=== PATIENT | male | born 1990 ===

== ENCOUNTER 2023-04-19 16:16 | Inpatient (IN) | payer BC, SELFPAY ==
[2023-04-19] VITALS (12 sets, daily range): BP systolic 102–145; BP diastolic 54–90; PULSE 75–98; RESP 14–23; TEMP 36.5–37.8; O2SAT 95–100; BMI 25.2
--- NOTE | ~2023-04-19 | CT_ITS ---
EXAMINATION: CT abdomen pelvis w con DATE: 04/19/2023 17:08 INDICATION: RLQ abdominal pain TECHNIQUE: Computed tomography (CT) of the abdomen and pelvis was performed with 100 mL Omnipaque-350 intravenous contrast. Automated exposure control and iterative reconstruction technique were employe d. The dose-length product was 566.18 mGy-cm. COMPARISON: None. FINDINGS: Lower thorax: Unremarkable Liver: Normal. Biliary/Gallbladder: Gallbladder is normal. No bile duct dilation. Pancreas: No mass or duct dilation. Spleen: Normal. Adrenals:No mass. Kidneys: No mass, stone, or hydronephrosis. GI tract: No small or large bowel dilation. Dilated appendicolith-containing appendix with wall edema , mucosal hyperemia, periappendiceal inflammatory change, pericecal fluid, and a cecal wall edema. No evidence of wall breakdown or abscess. Multisegmental areas of colonic submucosal fat as can be seen with chronic IBD, obesity, chemotherapy treatment, and celiac disease. Mesentery/Peritoneum: No ascites, mass, or free air. Retroperitoneum: No mass. Pelvis: Pelvic organs are within normal limits. Soft Tissues: Soft tissues and body wall unremarkable. Bones: No acute osseous finding. IMPRESSION: Severe acute appendicitis. There is pericecal fluid and small volume fluid in the deep pelvis, presum ably reactive given the lack of any findings of wall breakdown. No formed abscess detected. Results reported telephonically to Dr. Moeller by Dr. Dupree at 5:25 PM on 04/17/2023. Reviewed, dictated and finalized at location K. IMPRESSION: Severe acute appendicitis. There is pericecal fluid and small volume fluid in t he deep pelvis, presumably reactive given the lack of any findings of wall calvin kdown. No formed abscess detected. Results reported telephonically to Dr. Moeller by Dr. Dupree at 5:25 PM on 023.
--- NOTE | 2023-04-19 16:35 | ED.GENADULT ---
HPI - General Adult General Chief complaint: Abdominal Pain Stated complaint: Very intense abdominal pain Time Seen by Provider: 04/19/23 16:30 History of Present Illness HPI narrative: 33-year-old male presents with abdominal pain. Per patient, for the past few days he has been having intermittent abdominal pain, mostly in the right lower quadrant, pain continued so he presents to the emergency department for further evaluation. He denied fevers, chills, nausea, vomiting, chest pain, shortness of breath, dysuria, hematuria, diarrhea. He reports last bowel movements . Past Medical History: denied Past Surgical History: denied Medications: denied Allergies: penicillin Related Data Allergies Allergy/AdvReac Type Severity Reaction Status Date / Time Penicillins Allergy Unknown Unknown Verified 04/19/23 16:25 Review of Systems Review of Systems: See HPI Exam Narrative: General: Alert, calm and cooperative, no acute distress, phonating, sitting comfortably during visit HEENT: Pupils equal round and reactive to light, extra ocular movements intact, no conjunctival injection, head atraumatic, neck supple without meningismus Cardiovascular: Regular rate and rhythm, no visible jugular venous distension Respiratory: Lungs clear to auscultation bilaterally, no wheezing/rales/rhonchi Abdominal: RLQ tenderness to palpation, soft, non-distended, no guarding, no rebound/peritoneal signs, no costovertebral tenderness to palpation Back: no midline tenderness to palpation, no step offs Extremities: No edema, palpable peripheral pulses, warm, well perfused, no tenderness to bilateral calves Neurological: Alert, moving all extremities symmetrically, ambulating without deficit Course Consultations Consultation #1: Case discussed with radiologist, appendicitis confirmed. General surgery paged. Date: 04/19/23 Time: 17:29 Consultation #2: Case discussed with general surgeon Dr. Ramires, will take patient to OR. Date: 04/19/23 Time: 17:45 Vital Signs Vital signs: Vital Signs Temperature 97.7 F 04/19/23 16:21 Pulse Rate 76 04/19/23 16:21 Respiratory Rate 18 04/19/23 16:21 Blood Pressure 144/89 H 04/19/23 16:21 Pulse Oximetry 100 04/19/23 16:21 Oxygen Delivery Room Air 04/19/23 16:21 Temperature 97.7 F 04/19/23 16:21 Pulse Rate 98 04/19/23 18:46 Respiratory Rate 23 H 04/19/23 18:46 Blood Pressure 137/85 04/19/23 18:46 Pulse Oximetry 98 04/19/23 18:46 Oxygen Delivery Room Air 04/19/23 16:21 Medical Decision Making MDM Narrative Medical decision making narrative: 33 year old male presented with right lower quadrant abdominal pain. Physical exam notable for right lower quadrant abdominal tednerness to palpation, abdomen soft, vitals stable. Differential diagnosis includes but not limited to: appendicitis vs pyelonephritis vs nephrolithiasis vs PUD. CT abd/pelv notable for severe appendicitis. Bloodwork reviewed, notable for leukocytosis 30k, reamining within normal limits. History and exam suggestive of acute appendicitis. IV antibiotics and analgesia given. General surgery consulted. Given acute nature of presenting disease process and potential for decompensation, the patient would benefit from surgical admission for further optimization and management. Vital Signs Vital Signs: Vital Signs Temperature 97.7 F 04/19/23 16:21 Pulse Rate 76 04/19/23 16:21 Respiratory Rate 18 04/19/23 16:21 Blood Pressure 144/89 H 04/19/23 16:21 Pulse Oximetry 100 04/19/23 16:21 Oxygen Delivery Room Air 04/19/23 16:21 Temperature 97.7 F 04/19/23 16:21 Pulse Rate 98 04/19/23 18:46 Respiratory Rate 23 H 04/19/23 18:46 Blood Pressure 137/85 04/19/23 18:46 Pulse Oximetry 98 04/19/23 18:46 Oxygen Delivery Room Air 04/19/23 16:21 Lab Data 04/19/23 16:27 04/19/23 16:27 Labs: Lab Results 04/19/23 Range/Units 16:27 WB
[2023-04-19 16:37] LABS: Hematocrit 46.5 % (42.0-52.0); Hemoglobin 15.8 g/dL (14.0-18.0); Mean Corpuscular Hemoglobin 30.7 pg (26-34); Mean Corpuscular Volume 90.5 fl (80-100); Mean Platelet Volume 9.5 fl (7.4-10.4); Platelet Count Result 313 k/mm3 (150-375); Red Blood Count 5.14 M/mm3 (4.6-6.20); Red Cell Distribution Width 11.9 % (11.5-14.5); White Blood Count 30.2 K/mm3 (4.5-10.0)
[2023-04-19] MEDS: MORPHINE SULFATE (*CRX) 4 MG/ML INJ IV PUSH ×2 (16:40→17:47)
[2023-04-19 16:45] LABS: Alanine Aminotransferase 21 U/L (6-50); Albumin Level 4.9 g/dL (3.5-5.1); Alkaline Phosphatase 81 U/L (38-126); Anion Gap 13 mmol/L (8-16); Aspartate Amino Transferase 21 U/L (17-59); Bilirubin,Total 1.2 mg/dL (0.2-1.3); Blood Urea Nitrogen 9 mg/dL (9-20); Calcium 9.3 mg/dL (8.4-10.2); Carbon Dioxide 24 mmol/L (22-30); Chloride 98 mmol/L (98-107); Estimated CRCL calculation 107 ml/min; Estimated Glomerular Filt Rate > 60; Glucose 134 mg/dL (65-110); Lipase 23 U/L (23-300); Potassium 3.9 mmol/L (3.4-5.0); Sodium 135 mmol/L (137-145)
[2023-04-19 17:04] LABS: Appearance Urine Cloudy (Clear); Bacteria Urine None Seen /hpf; Bilirubin Urine Negative (Negative); Blood Urine Negative (Negative); Color Urine Dark Yellow (Yellow); Glucose Urine UA Negative (Negative); Ketones Urine 4+ mg/dL (Negative); Leukocyte Esterase Ur Trace LEU/UL (Negative); Mucus Urine Present /lpf; Nitrate Urine Negative (Negative); Protein Urine 1+ mg/dL (Negative); RBC Urine 0-2 /hpf (0-2); Specific Grav Ur 1.033 (1.001-1.035); Squamous Epithelial Cell Urine Few /hpf (Few)
[2023-04-19 17:08] LABS: Add Urine Microscopic? YES
[2023-04-19 17:16] LABS: Band Neutrophils Percent 2 % (0-6); Lymphocytes Absolute Manual 3.62 K/mm3 (1.1-4.5); Monocytes Absolute Manual 1.81 K/mm3 (0.1-0.90); Monocytes Percent Manual 6 % (3-9); Neutrophils Absolute Manual 24.76 K/mm3 (1.3-6.7); Neutrophils Percent Manual 80 % (46-73); Platelet Estimate Adequate (Adequate); Schistocytes None Seen (NORMAL); Total Cells Counted 100
[2023-04-19] MEDS: SODIUM CHLORIDE 0.9% IV 1,000 ML 999 ML IV CONT (17:42)
[2023-04-19] MEDS: metroNIDAZOLE 500 MG/ISO 100ML 500 MG/100 ML BAG 100 MG IVPB (17:54)
--- NOTE | 2023-04-19 18:50 | WPDANESEPPF ---
Anes - Initial Pre Proc Eval Procedure: Operation Date: 04/19/23 18:45 Proposed Procedures p Laparoscopic Appendectomy - Eugene Ramires MD Date/Time: 04/19/23 18:50 Surgeon: Ike Pre Op Diagnosis: Acute appendicitis Pre Op Diagnosis: Very intense abdominal pain Patient Data Age: 33 Gender: M Height: 1.78 m Weight: 80 kg Last Vital Signs Temp 36.5 C 04/19/23 16:21 Pulse 98 04/19/23 18:46 Resp 23 H 04/19/23 18:46 BP 137/85 04/19/23 18:46 Pulse Ox 98 04/19/23 18:46 O2 Del Method Room Air 04/19/23 16:21 Allergies Allergy/AdvReac Type Severity Reaction Status Date / Time Penicillins Allergy Unknown Unknown Verified 04/19/23 16:25 Laboratory Tests 04/19/23 16:27 WBC 30.2 H K/mm3 (4.5-10.0) RBC 5.14 M/mm3 (4.6-6.20) Hgb 15.8 g/dL (14.0-18.0) Hct 46.5 % (42.0-52.0) MCV 90.5 fl (80-100) MCH 30.7 pg (26-34) MCHC 34.0 g/dl (32-36) RDW 11.9 % (11.5-14.5) Plt Count 313 k/mm3 (150-375) MPV 9.5 fl (7.4-10.4) Immature Gran % (Auto) Not Reportable Neut % (Auto) Not Reportable Lymph % (Auto) Not Reportable Colbert % (Auto) Not Reportable Eos % (Auto) Not Reportable Baso % (Auto) Not Reportable Lymph # (Auto) Not Reportable Colbert # (Auto) Not Reportable Eos # (Auto) Not Reportable Baso # (Auto) Not Reportable Abs Immat Gran (auto) Not Reportable Absolute Neuts (auto) Not Reportable Absolute Nucleated RBC Not Reportable Total Counted 100 Neutrophils % (Manual) 80 H % (46-73) Band Neutrophils % 2 % (0-6) Lymphocytes % (Manual) 12.0 L % (18-44) Monocytes % (Manual) 6 % (3-9) Nucleated RBC % Not Reportable Abs Neuts (Manual) 24.76 H K/mm3 (1.3-6.7) Abs Lymphs (Manual) 3.62 K/mm3 (1.1-4.5) Abs Monocytes (Manual) 1.81 H K/mm3 (0.1-0.90) Platelet Estimate Adequate (Adequate) Schistocytes None seen (NORMAL) Sodium 135 L mmol/L (137-145) Potassium 3.9 mmol/L (3.4-5.0) Chloride 98 mmol/L (98-107) Carbon Dioxide 24 mmol/L (22-30) Anion Gap 13 mmol/L (8-16) BUN 9 mg/dL (9-20) Creatinine 0.90 mg/dL (0.7-1.3) Estim Creat Clear Calc 107 ml/min Estimated GFR > 60 (59 - ) Glucose 134 H mg/dL (65-110) Calcium 9.3 mg/dL (8.4-10.2) Total Bilirubin 1.2 mg/dL (0.2-1.3) AST 21 U/L (17-59) ALT 21 U/L (6-50) Alkaline Phosphatase 81 U/L (38-126) Total Protein 8.0 g/dL (6.3-8.2) Albumin 4.9 g/dL (3.5-5.1) Lipase 23 U/L (23-300) Urine Color Dark yellow (Yellow) Urine Appearance Cloudy H (Clear) Urine pH 6.0 (5.0-9.0) Ur Specific Dale 1.033 (1.001-1.035) Urine Protein 1+ H mg/dL (Negative) Urine Glucose (UA) Negative mg/dL (Negative) Urine Ketones 4+ H mg/dL (Negative) Ur Blood (Man) Negative (Negative) Urine Nitrate Negative (Negative) Urine Bilirubin Negative (Negative) Urine Urobilinogen 1.0 mg/dL (<2.0) Leukocyte Esterase Rfl Trace H WAYNE/UL (Negative) Urine RBC 0-2 /hpf (0-2) Urine WBC 6-10 H /hpf Ur Squamous Epith Cells Few /hpf (Few) Urine Bacteria None seen /hpf Urine Casts 6-10 Urine Mucus Present /lpf Patient hx anesthesia problems: none Family hx anesthesia problems: none Results Review: All pre-operative results and documents have been reviewed as part of the pre-operative evaluation. PMFSH Comments Marijuana use, Vaping Anes - Eval Final PreProcedure Day of Procedure 04/19/23 18:50 Patient weight: normal Heart: regular rate and rhythm Lungs: clear to auscultation Airway: Mallampati scale class II Neurological: alert and oriented Last oral intake: >/= 8 hours ASA classification: II Emergent: yes Anesthetic plan: proceed Anesthesia type and monitoring: general ETT an
--- NOTE | 2023-04-19 18:51 | PM.IMHP ---
H&P: HPI History of Present Illness Date/Time: 04/19/23 18:51 Chief Complaint: Acute appendicitis Narrative: Patient is a 33-year-old white male presents to the emergency room with a 2 day history of lower abdominal pain which eventually localized right lower quadrant the abdomen. Episodes nausea or vomiting. In the [place] [address] scan abdomen pelvis was performed showing a very dilated and edematous appendix with an appendicolith noted within the midportion of the appendix. No perforation or free air was seen. No periappendiceal abscess was seen. Patient has not had previous surgery. He otherwise is a fairly healthy individual. Review of Systems Review of Systems: The remainder of the review of systems to include constitutional, HEENT, cardiovascular, respiratory, GI, , integumentary, musculoskeletal, endocrine, immunologic, hematologic, psychiatric, and neurologic are all negative except for which is mentioned above in the HPI. Meds Home Medications and Allergies Allergies Allergy/AdvReac Type Severity Reaction Status Date / Time Penicillins Allergy Unknown Unknown Verified 04/19/23 16:25 Vital Signs Vital Signs - 24 hr 04/19/23 16:21 04/19/23 16:48 04/19/23 18:46 Temperature 36.5 C Pulse Rate 76 79 98 Respiratory Rate 18 20 23 H Blood Pressure 144/89 H 145/90 H 137/85 Pulse Oximetry 100 100 98 Oxygen Delivery Room Air Exam Const: General: in distress (Severe right lower quadrant abdominal pain.) severe HENMT: Face/Nose/Sinus: Normal nares present Mouth: Yes dry mucous membranes Eyes: General: appearance normal, both eyes and all related structures Sclera: sclerae normal Pupils: Equal, round and reactive pupils present EOM: EOMs intact bilaterally Neck: Neck: supple and no JVD Resp: Effort & Inspection: normal respiratory effort Auscultation: clear to auscultation bilaterally Cardio: Rate: regular rate Rhythm: regular rhythm GI: Other: Abdomen is moderately distended. He has severe tenderness the right lower quadrant with involuntary guarding. No mass appreciated no ventral hernias are noted. He does have peritoneal signs. Neuro: Speech: normal speech Sensory Exam: normal sensation Extrem: General: normal to inspection Psych: Mental Status: mental status grossly normal Affect: normal affect H&P: Results Labs Labs: Short CBC 04/19/23 Range/Units 16:27 WBC 30.2 H (4.5-10.0) K/mm3 Hgb 15.8 (14.0-18.0) g/dL Hct 46.5 (42.0-52.0) % Plt Count 313 (150-375) k/mm3 BMP 04/19/23 16:27 Sodium 135 L Potassium 3.9 Chloride 98 Carbon Dioxide 24 BUN 9 Creatinine 0.90 Glucose 134 H Calcium 9.3 Liver Function 04/19/23 Range/Units 16:27 Total Bilirubin 1.2 (0.2-1.3) mg/dL AST 21 (17-59) U/L ALT 21 (6-50) U/L Alkaline Phosphatase 81 (38-126) U/L Albumin 4.9 (3.5-5.1) g/dL Urine 04/19/23 Range/Units 16:27 Urine Color Dark yellow (Yellow) Urine Appearance Cloudy H (Clear) Urine pH 6.0 (5.0-9.0) Ur Specific Robinson 1.033 (1.001-1.035) Urine Protein 1+ H (Negative) mg/dL Urine Glucose (UA) Negative (Negative) mg/dL Imaging CT scan - abdomen: Radiologist's impression: Patient: Ulises Avalos : 1990 MR#: [id number] Age/Sex: 33 / M Acct:[id number] Loc: [facility]? ? ADM Date: 04/19/23Attending Dr: Ordering Physician: Avel Moeller MD Date of Service: 04/19/23 Procedure(s): CT abdomen pelvis w con Accession Number(s): [id number] cc: Avel Moeller MD~ EXAMINATION: CT abdomen pelvis w con DATE: 04/19/2023 17:08 INDICATION: RLQ abdominal pain TECHNIQUE: Computed tomography (CT) of the abdomen and pelvis was performed with 100 mL Omnipaque-350 intravenous contrast. Automated exposure control and iterative reconstruction technique were employed. The dose-length product was 566.18 mGy-c
--- NOTE | 2023-04-19 19:00 | P.PNAN_ITS ---
Anes - Eval Final PreProcedure Day of Procedure 04/19/23 19:00 Patient weight: normal Heart: regular rate and rhythm Lungs: decreased breath sounds Airway: Mallampati scale class II Neurological: alert and oriented Last oral intake: >/= 8 hours ASA classification: II Emergent: yes Anesthetic plan: proceed Anesthesia type and monitoring: general ETT and standard monitoring Results Review: All pre-operative results and documents have been reviewed as part of the pre- operative evaluation. Informed Consent: The patient's anesthetic plan and its attendant risks and benefits were discussed with the patient/family/POA. Questions were solicited and answers provided to the satisfaction of the patient/family/POA.
[2023-04-19] MEDS: ACETAMINOPHEN 650 MG SUPPOSITORY RECTAL (19:23)
[2023-04-19] MEDS: BUPivacaine HCL 0.5% 10 ML AMP 20 ML INFILTRATE (19:41)
[2023-04-19] MEDS: LACTATED RINGERS 1,000 ML 30 ML IV CONT ×2 (20:20)
--- NOTE | 2023-04-19 20:29 | W.PM.PROC2 ---
Procedure Note - Detailed Date of Procedure 04/19/23 Pre-op Diagnosis Acute appendicitis. Post-op Diagnosis Other (Perforated appendicitis.) Procedure Performed Laparoscopic appendectomy Surgeon Eugene Ramires MD Mat Man SUSANNE Ho Anesthesia General Indications Patient is a 33-year-old white male presents to the emergency with a 2 day history of right lower quadrant abdominal pain. [place] [address] scan abdomen pelvis showed a dilated and inflamed appendix with a appendicoliths within the appendix. There was periappendiceal inflammation but no abscess or free air. Findings Upon entering the abdomen there was peritonitis in the right lower quadrant was some purulent fluid extending into the pelvis. Inflammatory adhesions of the terminal ileum to the cecum and the appendix. Upon mobilization of the terminal ileum it was clear that there was a perforation of the appendix with a small amount of fecal contamination. Description of Procedure After informed consent was obtained patient brought to the operating room placed supine position and general endotracheal anesthesia was administered. A Cormier catheter was placed decompress the bladder and an orogastric tube was placed decompress the stomach. The end was then prepped and draped usual sterile fashion. A time-out was then performed correctly identifying the patient as well as procedure to be performed. Patient already got scheduled IV antibiotics. I then entered the abdomen left upper quadrant utilizing a 5mm Optiview port. Once inside the abdomen insufflated to adequate pneumoperitoneum of 15mmHg of CO2. I then placed a 5mm suprapubic trocar port as well as a 5minute right lower quadrant trocar port and then a 12mm periumbilical trocar port all under direct visualization. Working through these ports I was able to mobilize the terminal ileum off of the cecum. There were inflammatory adhesions in this area. I then found the appendix which in the midportion had a small area perforation and a small amount of stool which had leaked out of the appendix. I was able to hold the appendix up with a laparoscopic grasper did make a defect of the mesoappendix just at the base. I then used a Endo-ADRIEN stapler to divide the appendix flush with the cecum. The mesoappendix was then divided with a vascular load to the 45mm Endo-ADRIEN stapler. The appendix was then placed into an Endo-Catch bag and brought out through the periumbilical trocar port site. It was passed off table sent to pathology for examination. I then irrigated out the right lower quadrant the abdomen and the pelvis with about 2.5L of sterile saline solution. At the end of the irrigation there was no more purulence or fecal material noted in the fluid. I then placed a 15 Angolan round Sherman drain into the right lower quadrant of the abdomen and brought out through the suprapubic trocar port site. It was secured to the skin of the 3-0 nylon suture. This point I then removed all the trocar ports under visualization all port sites appeared hemostatic. I then allowed the abdomen decompressed. I then closed the periumbilical trocar port fascial defect utilizing a 0 Vicryl suture placed in a figure-eight fashion. All the port sites was then closed utilizing a running subcuticular 4-0 Monocryl suture. The incisions were then cleaned the skin glue was used for final dressing. The patient tolerated the procedure well no complications. All sponges, needles, and instrument counts were correct at the end procedure. EBL was _ 20 __cc. The patient was awakened and taken to recovery in stable and satisfactory condition. At the end the procedure the Cormier catheter was removed. Implants None Estimated Blood Loss 20 Drains Yes (15 Angolan round Sherman drain right lower quadrant) Packing No Pathology Yes (Appendix to pathology) Complications No immediate complications Condition Stable Disposition PACU [facility] Billing Marzena
[2023-04-19] MEDS: LACTATED RINGERS 1,000 ML 125 ML IV CONT (21:55)
--- NOTE | 2023-04-19 22:27 | ADMGEN ---
This patient, Ulises Avalos, was admitted to [facility] Surg Room 303-01. Patient/family oriented to hospital policies and general routines including ID bracelet, bed and alarms, visiting hours, pain management, procedures, bathroom and other care routines, personal items, smoking policy, room service/diet, and visiting hours. Information on how to activate the Rapid Response Team has been discussed. Patient/Family are encouraged to report perceived risks to care and to ask questions if they do not understand what they are told or what they should do.
[2023-04-19] MEDS: oxyCODONE HCL (*CRX) 5 MG TAB IR PO (23:41)
[2023-04-19] MEDS: metroNIDAZOLE 250 MG TABLET 500 MG PO (23:42)
[2023-04-20 04:00] VITALS: BP 126/72; PULSE 78; RESP 16; TEMP 36; O2SAT 99
[2023-04-20] MEDS: metroNIDAZOLE 250 MG TABLET 500 MG PO ×3 (06:13→17:03)
[2023-04-20] MEDS: LACTATED RINGERS 1,000 ML 125 ML IV CONT ×2 (06:14→08:12)
[2023-04-20 08:31] LABS: Basophils Percent Auto 0.1 % (0.2-1.2); Hematocrit 41.4 % (42.0-52.0); Hemoglobin 13.8 g/dL (14.0-18.0); Immature Granulocyte Absolute 0.12 K/mm3 (0.00-0.031); Immature Granulocyte Percent A 0.6 % (0-0.5); Lymphocytes Absolute Auto 0.75 K/mm3 (0.9-3.2); Lymphocytes Percent Auto 3.7 % (18.3-44.2); Mean Corpuscular HGB Conc 33.3 g/dl (32-36); Mean Corpuscular Hemoglobin 30.3 pg (26-34); Monocytes Absolute Auto 1.3 K/mm3 (0.1-0.6); Monocytes Percent Auto 6.3 % (2.6-8.5); Neutrophils Percent Auto 89.3 % (45.5-73.1); Platelet Count Result 224 k/mm3 (150-375); Red Blood Count 4.55 M/mm3 (4.6-6.20); Red Cell Distribution Width 11.9 % (11.5-14.5); White Blood Count 20.1 K/mm3 (4.5-10.0)
[2023-04-20] MEDS: oxyCODONE HCL (*CRX) 5 MG TAB IR PO ×3 (08:54→19:49)
--- NOTE | 2023-04-20 09:09 | PM.PNGS ---
Progress Note: A&P Assessment and Plan (1) Acute appendicitis: Qualifiers: Acute appendicitis type: unspecified acute appendicitis type Qualified Code(s): K35.80 - Unspecified acute appendicitis Code(s): K35.80 - Unspecified acute appendicitis Status: Acute Assessment and Plan: Due to perforation and spillage was small amount of fecal material and severe peritonitis in the region I think he would benefit from another 24hours of IV antibiotics. White blood count is still pending but it was 30,000 before surgery. Clinically he is much improved. We will go ahead and Hep-Lock is IV fluids. Ambulate as tolerated. Likely go home on oral antibiotics for another 7 to 10 days. Hopefully can discharge home tomorrow. Subjective Subjective Date/Time Seen: 04/20/23 09:09 Interval history: Patient is postop day 1 after laparoscopic appendectomy for perforated appendicitis. He is doing well today. His pain is much better. He remained afebrile overnight. He tolerated regular food this morning. White blood cell count is still pending this morning. Exam Const: General: comfortable and no acute distress GI: Other: Abdomen is soft and nondistended. Drain is in place with slightly blood tinged nonpurulent serous drainage. Amount output is low. Remaining port sites are healing well without any drainage or redness. Some mild tenderness around the port sites but no significant tenderness in the right lower quadrant or guarding. Objective Data Vital Signs Vital Signs: Vital Signs - 24 hr 04/19/23 16:21 04/19/23 16:48 04/19/23 18:46 Temperature 36.5 C Pulse Rate 76 79 98 Respiratory Rate 18 20 23 H Blood Pressure 144/89 H 145/90 H 137/85 Pulse Oximetry 100 100 98 Oxygen Delivery Room Air Oxygen Flow Rate 04/19/23 20:20 04/19/23 20:35 04/19/23 20:50 Temperature 37.8 C H Pulse Rate 98 93 88 Respiratory Rate 17 16 15 Blood Pressure 102/54 L 111/63 132/75 Pulse Oximetry 99 100 95 Oxygen Delivery Simple Face Mask Simple Face Mask Room Air Oxygen Flow Rate 8 8 04/19/23 21:05 04/19/23 21:20 04/19/23 21:45 Temperature 37.8 C H 36.5 C Pulse Rate 86 89 79 Respiratory Rate 16 18 14 Blood Pressure 123/82 129/75 139/77 Pulse Oximetry 95 95 98 Oxygen Delivery Room Air Room Air Oxygen Flow Rate 04/19/23 22:00 04/19/23 22:30 04/19/23 23:30 Temperature 36.8 C 36.8 C 36.6 C Pulse Rate 78 84 75 Respiratory Rate 16 14 14 Blood Pressure 145/82 H 138/83 132/82 Pulse Oximetry 99 98 99 Oxygen Delivery Oxygen Flow Rate 04/20/23 04:00 04/20/23 08:12 Temperature 36.0 C L Pulse Rate 78 Respiratory Rate 16 Blood Pressure 126/72 Pulse Oximetry 99 Oxygen Delivery Room Air Oxygen Flow Rate Intake/Output Intake/Output: Intake & Output 04/17/23 04/18/23 04/19/23 04/20/23 23:59 23:59 23:59 23:59 Intake Total 1400 2487 Output Total 100 160 Balance 1300 2327 Meds/Results Medications: Active Medications Generic Name Dose Route Start Last Admin Trade Name Freq PRN Reason Stop Dose Admin Acetaminophen 1,000 mg 04/19/23 20:26 Acetaminophen 500 Mg Tablet PO Q6H PRN Pain Rated 1-3 Hydromorphone HCl 1 mg 04/19/23 20:26 Hydromorphone Hcl Inj (*Crx) 1 Mg/Ml Syr IV PUSH Q4H PRN Pain Rated 7-10 Lactated Ringer's 1,000 mls @ 125 mls/hr 04/19/23 20:26 04/20/23 08:12 Lr - Lactated Ringers Iv IV CONT 125 mls/hr .Q8H NARESH Administration Ceftriaxone Sodium 1 gm in 50 mls @ 100 mls/hr 04/20/23 09:00 04/20/23 08:04 Rocephin 1 Gm/Ns 50 Ml IVPB 100 mls/hr DAILY NARESH Administration Metronidazole 500 mg 04/20/23 00:00 04/20/23 06:13 Metronidazole 250 Mg Tablet PO 500 mg Q6HR NARESH Administration Ondansetron HCl 4 mg 04/19/23 20:26 Ondansetron Inj 4 Mg/2 Ml Vial IV PUSH Q6H PRN nausea Oxycodone HCl 5 mg 04/19/23 21:33 04/20/23 08:54 Oxycodone Hcl (*Crx) 5 Mg Tab Ir PO
[2023-04-20 09:24] VITALS: O2SAT 97
--- NOTE | 2023-04-20 11:50 | PC.NURSE ---
Addendum entered by Jazmine Gambino RN 04/20/23 17:44: Pt resting in room. Pt had 5mL output from LANRE drain. Trochar sites are clean, dry, and intact. Pt reports having a decreased appetite at this time. Will continue to monitor pt. Original Note: Pt continues to have pain 4/10 that is controlled with roxicodone. Pt reports that he will need a work release when discharged. Pt has family at bedside. Pt is A&O4 and participates and contributes in plan of care. Will continue to monitor pt.
[2023-04-20 14:00] VITALS: BP 121/67; PULSE 82; RESP 16; TEMP 37.7; O2SAT 98
[2023-04-20 22:00] VITALS: BP 129/84; PULSE 87; RESP 16; TEMP 36.9; O2SAT 99
[2023-04-21] MEDS: metroNIDAZOLE 250 MG TABLET 500 MG PO ×2 (00:32→05:12)
[2023-04-21] MEDS: oxyCODONE HCL (*CRX) 5 MG TAB IR PO ×2 (04:09→16:36)
[2023-04-21 06:00] VITALS: BP 135/79; PULSE 87; RESP 18; TEMP 36.4; O2SAT 98
[2023-04-21 06:44] LABS: Basophils Percent Auto 0.1 % (0.2-1.2); Hematocrit 43.7 % (42.0-52.0); Hemoglobin 14.5 g/dL (14.0-18.0); Immature Granulocyte Absolute 0.13 K/mm3 (0.00-0.031); Immature Granulocyte Percent A 0.6 % (0-0.5); Lymphocytes Absolute Auto 0.93 K/mm3 (0.9-3.2); Lymphocytes Percent Auto 4.6 % (18.3-44.2); Mean Corpuscular HGB Conc 33.2 g/dl (32-36); Mean Corpuscular Hemoglobin 30.2 pg (26-34); Mean Platelet Volume 10.4 fl (7.4-10.4); Monocytes Absolute Auto 1.6 K/mm3 (0.1-0.6); Monocytes Percent Auto 7.7 % (2.6-8.5); Neutrophils Absolute Auto 17.6 K/mm3 (1.3-6.7); Platelet Count Result 230 k/mm3 (150-375); Red Cell Distribution Width 11.9 % (11.5-14.5); White Blood Count 20.2 K/mm3 (4.5-10.0)
--- NOTE | 2023-04-21 07:54 | PM.PNGS ---
Progress Note: A&P Assessment and Plan (1) Acute appendicitis: Qualifiers: Acute appendicitis type: unspecified acute appendicitis type Qualified Code(s): K35.80 - Unspecified acute appendicitis Code(s): K35.80 - Unspecified acute appendicitis Status: Acute Assessment and Plan: Postop day 2 after laparoscopic appendectomy for perforated appendicitis. He may have more of an ileus now has a of emesis this morning has not had a bowel movements. This is likely be due to his peritonitis from the perforated appendicitis. Insert IV antibiotics as white blood cell count was decreasing yesterday but today is pending. He was tolerating diet yesterday but this morning is drinking liquids but now has chosen not to be seen solid. He would like to have a bowel movement I offered him a suppository this morning he needs to get up and ambulate in the hallways and walk to the bathroom. Continue supportive management today and IV antibiotics. Leave the drain in for now. Subjective Subjective Date/Time Seen: 04/21/23 07:54 Post Op day: 2 Interval history: Patient is now postop day 2 after laparoscopic appendectomy for perforated appendicitis. He has been afebrile but seems to be swelling this morning. He did have an episode of emesis this morning. A bowel movement is he was tolerating regular diet yesterday but is not willing to eat much today because he just had some nausea and emesis. White blood cell count was 20,000 yesterday down from 30,000 thousand prior to surgery. Today's white blood cell count is pending. Exam GI: Other: Abdomen is soft minimally distended. Port site incisions are healing well. LANRE drain is low volume serous fluid. No feculent fluid or pus. Objective Data Vital Signs Vital Signs: Vital Signs - 24 hr 04/20/23 08:12 04/20/23 09:24 04/20/23 14:00 Temperature 37.7 C H Pulse Rate 82 Respiratory Rate 16 Blood Pressure 121/67 Pulse Oximetry 97 98 Oxygen Delivery Room Air Room Air 04/20/23 22:00 04/20/23 20:00 04/21/23 06:00 Temperature 36.9 C 36.4 C L Pulse Rate 87 87 Respiratory Rate 16 18 Blood Pressure 129/84 135/79 Pulse Oximetry 99 98 Oxygen Delivery Room Air Intake/Output Intake/Output: Intake & Output 0704/19/23 04/20/23 04/21/23 23:59 23:59 23:59 23:59 Intake Total 1400 3277 550 Output Total 100 665 765 Balance 1300 2612 -572 Meds/Results Medications: Active Medications Generic Name Dose Route Start Last Admin Trade Name Freq PRN Reason Stop Dose Admin Acetaminophen 1,000 mg 04/19/23 20:26 Acetaminophen 500 Mg Tablet PO Q6H PRN Pain Rated 1-3 Hydromorphone HCl 1 mg 04/19/23 20:26 Hydromorphone Hcl Inj (*Crx) 1 Mg/Ml Syr IV PUSH Q4H PRN Pain Rated 7-10 Ceftriaxone Sodium 1 gm in 50 mls @ 100 mls/hr 04/20/23 09:00 04/20/23 08:34 Rocephin 1 Gm/Ns 50 Ml IVPB Infused DAILY NARESH Infusion Metronidazole 500 mg 04/20/23 00:00 04/21/23 05:12 Metronidazole 250 Mg Tablet PO 500 mg Q6HR NARESH Administration Ondansetron HCl 4 mg 04/19/23 20:26 Ondansetron Inj 4 Mg/2 Ml Vial IV PUSH Q6H PRN nausea Oxycodone HCl 5 mg 04/19/23 21:33 04/21/23 04:09 Oxycodone Hcl (*Crx) 5 Mg Tab Ir PO 5 mg Q4H PRN Administration Pain Rated 4-6 Radiology Results: ITS Impressions Abdomen/Pelvis CT 04/19/23 17:21 IMPRESSION: Severe acute appendicitis. There is pericecal fluid and small volume fluid in the deep pelvis, presumably reactive given the lack of any findings of wall breakdown. No formed abscess detected. Results reported telephonically to Dr. Moeller by Dr. Dupree at 5:25 PM on 04/17/2023. Labs Labs: Laboratory Results - last 24 hr 04/20/23 08:03 WBC 20.1 H RBC 4.55 L Hgb 13.8 L Hct 41.4 L MCV 91.0 MCH 30.3 MCHC 33.3 RDW 11.9 Plt Count 224 MPV 10.0 Immature Gran % (Auto) 0.6 H Neut % (Auto) 89.3 H Ly
--- NOTE | 2023-04-21 11:16 | PCCCNOTE ---
On 04/21/23, the student, [Renetta Luu ], provided care and completed [facility] documentation on this patient. I have reviewed the student's documentation and agree with the findings.
--- NOTE | 2023-04-21 12:39 | PC.NURSE ---
Pt up ambulating per room. Encouraged to walk in hallway. Verbalized understanding.
[2023-04-21] MEDS: ONDANSETRON INJ 4 MG/2 ML VIAL IV PUSH ×2 (13:14→20:04)
[2023-04-21] MEDS: BISACODYL 10 MG SUPPOSITORY RECTAL (13:14)
[2023-04-21 14:00] VITALS: BP 133/76; PULSE 84; RESP 18; TEMP 36.7; O2SAT 100
[2023-04-21] MEDS: MEROPENEM 1 GM in SODIUM CHLORIDE 0.9% IV 100 ML 200 ML IVPB ×2 (16:34→20:01)
[2023-04-21 22:00] VITALS: BP 151/83; PULSE 79; RESP 16; TEMP 36.2; O2SAT 98
--- NOTE | 2023-04-21 22:55 | PC.NURSE ---
Pt walked the unit twice at 2100 with walker while pt walking along side of him. Pt denies lightheadedness/dizziness. Pt states he felt a little relief with nausea when he walks. Pt denies numbness/tingling. Pt denies increase pain at incisional sight. Continued monitoring. Pt was administered Zofran once at the beginning of shift due to c/o of nausea; no emesis present. Continued monitoring. Pt will continued to be educated on plan of care and will continued to be encouraged to walk.
[2023-04-22] MEDS: HYDROmorphone HCL INJ (*CRX) 1 MG/ML SYR IV PUSH (00:03)
[2023-04-22] MEDS: MEROPENEM 1 GM in SODIUM CHLORIDE 0.9% IV 100 ML 200 ML IVPB ×3 (05:04→22:44)
[2023-04-22] MEDS: oxyCODONE HCL (*CRX) 5 MG TAB IR PO (05:05)
[2023-04-22 05:56] VITALS: BP 110/72; PULSE 96; RESP 16; TEMP 36; O2SAT 100
--- NOTE | 2023-04-22 05:59 | PC.NURSE ---
Pt walked the unit at 0530 twice. Pt walked once around unit with a walker and walked the second time without the walker. Pt walk is steady. Pt states I feel much better. Pt denies N/V. Pt denies lightheadedness/dizziness. Continued monitoring and continued encouragement and plan of care education.
[2023-04-22 06:02] LABS: Basophils Percent Auto 0.2 % (0.2-1.2); Eosinophils Percent Auto 0.2 % (0-4.4); Hematocrit 44.1 % (42.0-52.0); Hemoglobin 14.5 g/dL (14.0-18.0); Immature Granulocyte Absolute 0.07 K/mm3 (0.00-0.031); Immature Granulocyte Percent A 0.4 % (0-0.5); Lymphocytes Absolute Auto 2.32 K/mm3 (0.9-3.2); Lymphocytes Percent Auto 13.5 % (18.3-44.2); Mean Corpuscular HGB Conc 32.9 g/dl (32-36); Mean Corpuscular Hemoglobin 30.4 pg (26-34); Mean Corpuscular Volume 92.5 fl (80-100); Mean Platelet Volume 10.3 fl (7.4-10.4); Monocytes Absolute Auto 1.5 K/mm3 (0.1-0.6); Monocytes Percent Auto 8.5 % (2.6-8.5); Neutrophils Absolute Auto 13.2 K/mm3 (1.3-6.7); Neutrophils Percent Auto 77.2 % (45.5-73.1); Platelet Count Result 282 k/mm3 (150-375); Red Blood Count 4.77 M/mm3 (4.6-6.20); Red Cell Distribution Width 12.1 % (11.5-14.5); White Blood Count 17.2 K/mm3 (4.5-10.0)
[2023-04-22 06:08] LABS: Anion Gap 8 mmol/L (8-16); Blood Urea Nitrogen 13 mg/dL (9-20); Calcium 8.9 mg/dL (8.4-10.2); Carbon Dioxide 33 mmol/L (22-30); Chloride 96 mmol/L (98-107); Estimated CRCL calculation 119 ml/min; Estimated Glomerular Filt Rate > 60; Glucose 104 mg/dL (65-110); Potassium 3.8 mmol/L (3.4-5.0); Sodium 137 mmol/L (137-145)
--- NOTE | 2023-04-22 11:58 | PM.PNGS ---
Progress Note: A&P Assessment and Plan (1) Acute appendicitis: Qualifiers: Acute appendicitis type: unspecified acute appendicitis type Qualified Code(s): K35.80 - Unspecified acute appendicitis Code(s): K35.80 - Unspecified acute appendicitis Status: Acute Assessment and Plan: Peritonitis is improving and postoperative ileus is resolving. Continue to advance to regular diet as tolerated. Continue meropenem for IV antibiotics today as his white blood count has continued to decrease. Likely discharge home tomorrow on oral antibiotics. Subjective Subjective Date/Time Seen: 04/22/23 11:58 Interval history: Patient feels much better today. He had a bowel movement yesterday has been able to walk around the hallways. Slept better last night. White blood cell count which was stable at 20,000 thousand yesterday is now dropped to 17,000. he was switched to meropenem for IV antibiotics yesterday. LANRE drain output is still serous and non feculent. No fever. Exam GI: Other: Soft and nondistended. Port site incisions healing well. Lower quadrant LANRE drain output is serous. Objective Data Vital Signs Vital Signs: Vital Signs - 24 hr 04/21/23 14:00 04/21/23 20:00 04/21/23 22:00 Temperature 36.7 C 36.2 C L Pulse Rate 84 79 Respiratory Rate 18 16 Blood Pressure 133/76 151/83 H Pulse Oximetry 100 98 Oxygen Delivery Room Air 04/22/23 05:56 04/22/23 08:00 Temperature 36.0 C L Pulse Rate 96 Respiratory Rate 16 Blood Pressure 110/72 Pulse Oximetry 100 Oxygen Delivery Room Air Intake/Output Intake/Output: Intake & Output 04/19/23 04/20/23 04/21/23 04/22/23 23:59 23:59 23:59 23:59 Intake Total 1400 3277 1150 970 Output Total 100 665 795 195 Balance 1300 2612 108 775 Meds/Results Medications: Active Medications Generic Name Dose Route Start Last Admin Trade Name Freq PRN Reason Stop Dose Admin Acetaminophen 1,000 mg 04/19/23 20:26 Acetaminophen 500 Mg Tablet PO Q6H PRN Pain Rated 1-3 Bisacodyl 10 mg 04/21/23 07:59 04/21/23 13:14 Bisacodyl 10 Mg Suppository RECTAL 10 mg QAM PRN Administration Constipation Diphenhydramine HCl 50 mg 04/21/23 13:57 Diphenhydramine Hcl Inj 50 Mg/Ml Vial IV PUSH ONCE PRN itching Hydromorphone HCl 1 mg 04/19/23 20:26 04/22/23 00:03 Hydromorphone Hcl Inj (*Crx) 1 Mg/Ml Syr IV PUSH 1 mg Q4H PRN Administration Pain Rated 7-10 Meropenem 1 gm/ Sodium 100 mls @ 200 mls/hr 04/21/23 14:00 04/22/23 05:34 Chloride IVPB Infused Q8H NARESH Infusion Ondansetron HCl 4 mg 04/19/23 20:26 04/21/23 20:04 Ondansetron Inj 4 Mg/2 Ml Vial IV PUSH 4 mg Q6H PRN Administration nausea Oxycodone HCl 5 mg 04/19/23 21:33 04/22/23 05:05 Oxycodone Hcl (*Crx) 5 Mg Tab Ir PO 5 mg Q4H PRN Administration Pain Rated 4-6 Radiology Results: ITS Impressions Abdomen/Pelvis CT 04/19/23 17:21 IMPRESSION: Severe acute appendicitis. There is pericecal fluid and small volume fluid in the deep pelvis, presumably reactive given the lack of any findings of wall breakdown. No formed abscess detected. Results reported telephonically to Dr. Moeller by Dr. Dupree at 5:25 PM on 04/17/2023. Labs Labs: Laboratory Results - last 24 hr 04/22/23 05:16 WBC 17.2 H RBC 4.77 Hgb 14.5 Hct 44.1 MCV 92.5 MCH 30.4 MCHC 32.9 RDW 12.1 Plt Count 282 MPV 10.3 Immature Gran % (Auto) 0.4 Neut % (Auto) 77.2 H Lymph % (Auto) 13.5 L [place] % (Auto) 8.5 Eos % (Auto) 0.2 Baso % (Auto) 0.2 Lymph # (Auto) 2.32 [place] # (Auto) 1.5 H Eos # (Auto) 0.0 Baso # (Auto) 0.0 Abs Immat Gran (auto) 0.07 H Absolute Neuts (auto) 13.2 H Absolute Nucleated RBC 0.0 Nucleated RBC % 0.0 Sodium 137 Potassium 3.8 Chloride 96 L Carbon Dioxide 33 H Anion Gap 8 BUN 13 Creatinine 0.80 Estim Creat Clear Calc 119 Estimated GFR > 60 Gluc
[2023-04-22] MEDS: ACETAMINOPHEN 500 MG TABLET 1000 MG PO ×2 (12:27→20:59)
[2023-04-22 14:00] VITALS: BP 128/82; PULSE 79; RESP 12; TEMP 36.4; O2SAT 98
[2023-04-22 22:00] VITALS: BP 138/88; PULSE 91; RESP 16; TEMP 37.3; O2SAT 100
[2023-04-23] MEDS: ACETAMINOPHEN 500 MG TABLET 1000 MG PO (04:01)
[2023-04-23] MEDS: MEROPENEM 1 GM in SODIUM CHLORIDE 0.9% IV 100 ML 200 ML IVPB (05:56)
[2023-04-23 06:00] VITALS: BP 137/88; PULSE 80; RESP 16; TEMP 36.8; O2SAT 97
[2023-04-23 06:06] LABS: Basophils Absolute Auto 0.1 K/mm3 (0.0-0.1); Basophils Percent Auto 0.4 % (0.2-1.2); Eosinophils Absolute Auto 0.2 K/mm3 (0-0.3); Eosinophils Percent Auto 1.2 % (0-4.4); Hematocrit 43.5 % (42.0-52.0); Hemoglobin 14.4 g/dL (14.0-18.0); Immature Granulocyte Absolute 0.05 K/mm3 (0.00-0.031); Immature Granulocyte Percent A 0.4 % (0-0.5); Lymphocytes Absolute Auto 2.22 K/mm3 (0.9-3.2); Lymphocytes Percent Auto 18.2 % (18.3-44.2); Mean Corpuscular HGB Conc 33.1 g/dl (32-36); Mean Corpuscular Hemoglobin 30.3 pg (26-34); Mean Corpuscular Volume 91.6 fl (80-100); Mean Platelet Volume 10.2 fl (7.4-10.4); Monocytes Absolute Auto 1.2 K/mm3 (0.1-0.6); Monocytes Percent Auto 9.4 % (2.6-8.5); Neutrophils Absolute Auto 8.6 K/mm3 (1.3-6.7); Neutrophils Percent Auto 70.4 % (45.5-73.1); Platelet Count Result 300 k/mm3 (150-375); Red Blood Count 4.75 M/mm3 (4.6-6.20); Red Cell Distribution Width 11.9 % (11.5-14.5); White Blood Count 12.2 K/mm3 (4.5-10.0)
--- NOTE | 2023-04-23 10:39 | PM.DS ---
DS: Admitting Diagnosis Discharge Date April 23, 2023 Admitting Diagnosis Acute appendicitis DS: Discharge Diagnosis Discharge Diagnosis Plan Perforated acute appendicitis DS: Summary Hospital Course Reason for hospitalization: Acute appendicitis Hospital Course: Patient presents to the emergency room here at [facility] with a 2 day history of worsening lower abdominal pain which localized to right lower quadrant abdomen. In the emergency room he was noted to have severe tenderness right lower quadrant with guarding and localized rebound tenderness. [place] [id number] [place] scan abdomen pelvis showed a very dilated appendix with possible perforation and a mid appendiceal appendicoliths. He was admitted to the hospital and started on IV antibiotics. He was given IV fluids. He was then taken to the operating room that evening for a successful laparoscopic appendectomy. There was severe peritonitis in the right lower quadrant the abdomen due to the severe inflammation and there was some limited spillage of fecal material which was quickly aspirated from the abdomen. Postoperatively his course and recovery was uneventful. He was then transferred to surgical floor. Once surgical floor his white blood cell count initially decreased to about 20,000. He remained afebrile but was cavity quite a bit of pain still due to the peritonitis. A left right lower quadrant drain was in place and there was no for feculent drainage but just bloody serosanguineous fluid to begin after surgery. The next days white blood count is still 20,000 and patient had a postoperative ileus and did not have any bowel movements. He was told to get up and walk around in the hallways and is IV antibiotics was switched to meropenem for broader coverage of possible anaerobic organisms. The next day he then started to do well after having a bowel movement. He was still getting up walking the hallways. He is tolerating oral pain medications. His white blood cell count dropped down to 12,000 with a new antibiotic and he was improving. He was doing well and be discharged home postop day 4. Patient was discharged home on Cipro for oral antibiotics for another 7 days. Status at Discharge Functional status at discharge: independent ambulation Overall status at discharge: patient is progressing back to baseline Time Spent with Patient Time attestation: Total time spent providing and/or coordinating discharge services: Time spent: Less than 30 minutes Exam Const: General: cooperative, healthy appearing, comfortable and no acute distress Chest: Chest palpation & inspection: normal inspection of the chest and normal palpation of entire chest wall Resp: Effort & Inspection: normal respiratory effort and able to speak in complete sentences Cardio: Rate: regular rate Rhythm: regular rhythm GI: Other: Abdomen nondistended. LANRE drain output is minimal and serous. Remaining port site incisions are healing well with skin glue in place without redness or drainage. No tenderness right lower quadrant the abdomen. Neuro: General: patient oriented x3 Cranial nerves: Yes CN's II-XII intact bilaterally Cognition (Neuro): normal cognition Speech: normal speech Gait exam (Neuro): Normal gait present Motor exam (neuro): 5/5 motor strength present throughout Extrem: General: normal to inspection, full ROM and capillary refill normal Psych: Appearance: grossly normal and well kempt Mental Status: mental status grossly normal Affect: normal affect Attitude: cooperative Thought process: Normal thought process present Thought content: Yes Normal thought content present Insight: Good insight present (Psych) Judgement: Good judgement present (Psych) DS: Data Data Completed and Pending Completed studies during hospitalization: Pending at discharge 04/19/23 19:35 Surgical [PTH] Routine Labs on day of discharge: Labs from last 24 hours
--- NOTE | 2023-04-23 13:48 | PCCCNOTE ---
On 04/23/23, the student, [Renetta Luu ], provided care and [facility]. I have reviewed the student's documentation and agree with the findings.
== END 2023-04-23 11:30 | disposition home or self-care (01) | DRG 339 ==
LOC: ANHED 19:36 → ANH3MEDSUR 21:51
PROVIDERS: Emergency Medicine; Admitting Provider Surgery; Emergency Provider Emergency Medicine; Visit Provider Surgery
PROC: 0DTJ4ZZ Resection of Appendix, Percutaneous Endoscopic Approach (ICD-10-PCS; CPT 44970; principal; 2023-04-19 18:45)
DX: K35.32 Acute appendicitis with perforation, localized peritonitis, and gangrene, without abscess (principal); K56.7 Ileus, unspecified; K91.89 Other postprocedural complications and disorders of digestive system
CPT/HCPCS: 36415; 74177; 80048; 80053; 81001; 83690; 85025; 86850; 86900; 86901; 87040; 87086; 87088; 88304; 96361; 96365; 96367; 96375; 96376; 99285; A9270; G0378; J0330; J0696; J1100; J1170; J1836; J2185; J2250; J2270; J2405; J2704; J3010; J7030; J7120; Q9967

== ENCOUNTER 2025-04-01 11:17 | Emergency (ER) | payer OTHER, SELFPAY ==
--- OUTSIDE RECORDS SUMMARY | 2025-04-01 11:19 | XMS_ITS | Continuity of Care Document ---
Author Organization [facility] Address [address] [place] [address] Phone Care Team Providers Care Carrot Grader Inspector Name Role Phone Guadalupe OD, Moncho Unavailable Unavailable Advance Directives Directive Yes / No Effective Date File Name No Information Encounters Encounter Description Practice Location Reason(s) For Visit Diagnoses Date Provider Providers Copied on Encounter [facility], [address], [place], [place], [id number], [place] tel:[phone] [facility] No Information Feb-0 2-200 6 Guadalupe OD Moncho. [address] , [address], [place], [address], [place]. tel:[phone] Family History Family Member Type Diagnosis Age At Onset No Information Payers Payer name Insurance type Covered green party ID Authoriza tion(s) No Information Social History Type Description Quantity Date Captured Comments Sex Male Smoking Status No Information Chief Complaint And Reason For Visit No Information Reason For Referral Reason For Referral No Information History Of Present Illness Encounter Date Complaint History Of Prese nt Illness No Information Functional Status Date Functional Assessmen t No Information Instructions Date Instruction Additional Infor mation No Information Assessments Type Assessment Date No Information Patient Care Teams Name Effective Dates (start - stop) Status Members No Information
--- OUTSIDE RECORDS SUMMARY | 2025-04-01 11:24 | XMS_ITS | Continuity of Care Document ---
Author Organization [facility] Address [address] [place] [address] Phone Care Team Providers Care Rec Therapist Name Role Phone Guadalupe OD, Moncho Unavailable Unavailable Advance Directives Directive Yes / No Effective Date File Name No Information Encounters Encounter Description Practice Location Reason(s) For Visit Diagnoses Date Provider Providers Copied on Encounter [facility], [address], [place], [place], [id number], [place] tel:[phone] [facility] No Information Feb-0 2-200 6 Guadalupe OD Moncho. [address] , [address], [place], [address], [place]. tel:[phone] Family History Family Member Type Diagnosis Age At Onset No Information Payers Payer name Insurance type Covered republican ID Authoriza tion(s) No Information Social History [...]
[2025-04-01 11:28] VITALS: BP 99/72; PULSE 100; RESP 18; TEMP 36.5; O2SAT 100
--- NOTE | 2025-04-01 11:29 | ED_ITS ---
HPI - Eye Problem General Chief complaint: Eye Problems Stated complaint: lt eye pain/swollen Time Seen by Provider: 04/01/25 11:32 Source: patient, RN notes reviewed and old records reviewed Mode of arrival: ambulatory Limitations: no limitations History of Present Illness HPI Narrative: 35-year-old male presents to the [facility] with concerns of left eye discomfort. States states yesterday he had some discomfort to the eye, felt like black eye. This morning up with a left upper eyelid swelling. Denies any change in vision l 20/25 r20/15 Wears glasses, has not seen an eye dr in several years. Onset (ago): day(s) (1) Related Data Allergies Allergy/AdvReac Type Severity Reaction Status Date / Time Penicillins Allergy Unknown Unknown Verified 04/01/25 11:33 Review of Systems Review of Systems: All systems reviewed & are unremarkable except as noted in HPI and below Constitutional: Constitutional: Reports no additional constitutional complaints Eyes: Eyes: Reports as per HPI ENT: Reports system reviewed and no additional complaints, except as documented PMFSH Surgical History Surgical History History of laparoscopic appendectomy 04/19/23 Social History Social History Smoking status: Current every day smoker Smokeless tobacco user: other Second hand tobacco smoke exposure: No Alcohol intake: current Drinks per week: 4 Substance use: current Substance use type: marijuana Lack of Transportation: No Lack of Food: Never True Current Housing: I Have Housing Concerned About Future Housing: Decline to Answer Difficulty Paying Gas/Electric Bills: Decline to Answer Difficulty Paying for Meds: Decline to Answer Currently Unemployed: YES Education: High School Diploma/GED Difficulty w/ Childcare or Family Care: No Spiritual care concerns: No Comments At the time of my signature, I reviewed and agree with the nursing past medical, surgical, social, and family history. There is no relevant family history pertinent to the patient complaint. Exam Const: General: cooperative, healthy appearing, comfortable, no acute distress, well developed, alert and well nourished Nutritional Appearance: well nourished Orientation/consciousness: patient oriented x3 Limitations: no limitations HENMT: Head: normal to inspection Ears: hearing grossly normal bilaterally and external ears normal Eyes: General: appearance normal, both eyes and all related structures Alignment and Position: alignment normal Eyelids: eyelid abnormality left upper eyelid swelling ([place] at the eyelashes upper. No crusting. ); without erythema, without foreign bodies, without lacerations and no crusting or scaling of lid margins Conjunctivae: conjunctivae normal Sclera: sclerae normal Neck: Neck: normal visual inspection, full ROM, no lymphadenopathy and no meningeal signs Chest: Chest palpation & inspection: normal inspection of the chest Resp: Effort & Inspection: normal respiratory effort and able to speak in complete sentences Cardio: Rate: regular rate Skin: General skin exam: normal color and no rashes or lesions noted Neuro: General: patient oriented x3, gait normal, moves all extremities and no meningeal signs Cognition (Neuro): normal cognition Speech: normal speech Gait exam (Neuro): Normal gait present Extrem: General: normal to inspection, full ROM, capillary refill normal and normal gait Psych: Appearance: grossly normal and well kempt Mental Status: mental status grossly normal Speech and movement: Normal speech and movement present and Clear speech present Affect: normal affect Attitude: cooperative Course Course Level of Care: Express Care Visit Vital Signs Vital signs: Vital Signs Temperature 97.7 F 04/01/25 11:28 Pulse Rate 100 04/01/25 11:28 Respiratory Rate 18 04/01/25 11:28 Blood Pressure 99/72 L 04/01/25 11:28 Pulse Oximetry 100 04/01/25 11:28 Oxygen Delivery Room Air 04/01/25 11:28 Temperature 97.7 F 04/01/25 11:28 Pulse Rate 100 04/01/25 11:28 Respiratory Rate 18 04/01/25 11:28 Blood Pressure 99/72 L 04/01/25 11:28 Pulse Oximetry 100 04/01/25 11:28 Oxygen Delivery Room Air 04/01/25 11:28 Reviewed MDM - Eye Problem MDM Narrative Medical decision making narrative: Patient sitting in exam. Patient is nontoxic, vitals stable. Patient presents with left eye discomfort since yesterday, increased today. Denies any blurry vision or change in vision. Does not were contact lenses Denies trauma Swelling especially at the eyelashes of the left upper lid. No significant erythema. Patient appropriate for outpatient treatment with antibiotic ointment Patient appropriate for outpatient treatment with close follow-up Discharge instructions reviewed with patient, as well as provided in writing per nursing staff. The instructions also include specific and strict return/GO TO THE ER as well as f/u information. All questions have been answered, and the patient deny any further questions with discharge and discharge plan. Some parts of this dictation were generated by voice recognition software and may contain typographical and/or grammatical inaccuracies. Differential Diagnosis Differential diagnosis: Likely corneal abrasion, conjunctivitis, acute iritis and other (Blepharitis) Critical Care Time Critical Care Time Critical Care Time: No Discharge Plan Discharge Clinical Impression: Blepharitis Qualifiers: Blepharitis type: unspecified type Laterality: left Eyelid: upper Qualified Code(s): H01.004 - Unspecified blepharitis left upper eyelid Patient Disposition: Home Condition: Stable Instructions: Antibiotic Form, Blepharitis (ED) Additional Instructions: Apply a cool, damp compress to your affected eye. Be sure to use a clean cloth each time to avoid spreading the infection. Gently clean your eyes with wet cotton balls or pads to remove crusty buildup or irritating discharge. Stop wearing contact lenses until the condition clears up. Use eye ointment as prescribed Maintain good hygiene and only touch your eyes with freshly washed hands. For new or worsening symptoms please go emergency You should follow-up with an eye doctor within the next 72 hours [facility]: [place]- [phone] [place] [phone] [facility] [phone] [place]: [facility] [phone] or [phone] [facility] [phone] [facility] [phone] [facility] [phone] [facility]- [phone] Patient Language: Tamazight Prescriptions: New erythromycin 5 mg/gram (0.5 %) ointment 0.5 inch LEFT EYE QID Qty: 3.5 0RF Follow-up/Referrals: PHYSICIAN,ROLL OPERATOR [Primary Care Provider] - Time of Disposition: 11:49
== END 2025-04-01 11:55 | disposition home or self-care (01) ==
PROVIDERS: Emergency Provider Nurse Practitioner; Referring Provider Emergency Medicine
DX: H01.004 Unspecified blepharitis left upper eyelid (principal); F17.200 Nicotine dependence, unspecified, uncomplicated; F12.90 Cannabis use, unspecified, uncomplicated
CPT/HCPCS: 99213; G0463